=== PATIENT | male | born 1995 | race Caucasian/White ===

== ENCOUNTER 2017-12-21 01:31 | Emergency (ER) | payer BC ==
[2017-12-21 01:56] VITALS: BP 116/72; PULSE 57; RESP 14; TEMP 97.5; O2SAT 100
--- NOTE | 2017-12-21 02:19 | ED PDOC ---
HPI: Dental Pain/Injury Time Seen by Provider: 12/21/17 01:40 Chief Complaint (Nursing): Dental Pain Chief Complaint (Provider): Left sided jaw/dental pain History Per: Patient History/Exam Limitations: no limitations Onset/Duration Of Symptoms: Days Current Symptoms Are (Timing): Still Present Severity: Severe Pain Scale Rating Of: 10 Additional Complaint(s): 22 yo male with no medical problems presents with left sided jaw and dental pain for 1 day. Pt states he feels his lower left tooth throbbing. Pt states it feels better with motrin a little but when the pain stops it is unbearable. PT states the motrin only last 4 hours. Past Medical History Reviewed: Historical Data, Nursing Documentation, Vital Signs Vital Signs: Last Vital Signs Temp 97.5 F L 12/21/17 01:49 Pulse 57 L 12/21/17 01:49 Resp 14 12/21/17 01:49 BP 116/72 12/21/17 01:49 Pulse Ox 100 12/21/17 01:49 - Medical History PMH: Asthma - Surgical History Surgical History: No Surg Hx - Family History Family History: States: No Known Family Hx - Living Arrangements Living Arrangements: With Family - Social History Current smoker - smoking cessation education provided: No - Home Medications Home Medications: Ambulatory Orders Medication Instructions Recorded Hydrocodone/Acetaminophen 1 tab PO ASDIR #12 tab 05/29/15 [Hydrocodone Bitartrate-Acetaminophen 325 mg-5] Ibuprofen [Motrin] 600 mg PO Q6H PRN #15 tab 05/29/15 Amoxicillin 875 mg PO BID #20 tab 12/21/17 traMADol [Ultram] 50 mg PO Q6H PRN #10 tab 12/21/17 - Allergies Allergies/Adverse Reactions: Allergies Allergy/AdvReac Type Severity Reaction Status Date / Time No Known Allergies Allergy Verified 12/21/17 01:48 Review of Systems ROS Statement: Except As Marked, All Systems Reviewed And Found Negative Constitutional: Negative for: Fever, Chills ENT: Positive for: Other Physical Exam - Reviewed Nursing Documentation Reviewed: Yes Vital Signs Reviewed: Yes - Physical Exam Appears: Positive for: Well, Non-toxic, No Acute Distress Head Exam: Positive for: ATRAUMATIC, NORMAL INSPECTION, NORMOCEPHALIC Skin: Positive for: Normal Color, Warm, DRY Eye Exam: Positive for: Normal appearance ENT: Positive for: Normal ENT Inspection, Pharynx Is, TM Is/Are, Other ( Severeal filling seen, no abscess formation, no drainage ) Neck: Positive for: Normal, Painless ROM Respiratory: Negative for: Accessory Muscle Use, Respiratory Distress Gastrointestinal/Abdominal: Positive for: Normal Exam, Soft Back: Positive for: Normal Inspection Extremity: Positive for: Normal ROM Neurologic/Psych: Positive for: Alert, Oriented - ECG O2 Sat by Pulse Oximetry: 100 Medical Decision Making Medical Decision Making: Tramadol given in ER/. Disposition - Clinical Impression Clinical Impression: Pain, dental - Patient ED Disposition Is Patient to be Admitted: No Counseled Patient/Family Regarding: Diagnosis, Need For Followup, Rx Given - Disposition Disposition: Routine/Home Disposition Time: 02:21 Condition: GOOD Prescriptions: Amoxicillin 875 mg PO BID #20 tab traMADol [Ultram] 50 mg PO Q6H PRN #10 tab PRN Reason: Pain Instructions: Dental Pain (DC)
== END 2017-12-21 02:38 | disposition home or self-care (01) ==
LOC: H.ER 01:31
DX: K08.89 Other specified disorders of teeth and supporting structures (principal)